=== PATIENT | female | born 1970 | race Caucasian/White ===

== ENCOUNTER 2018-11-25 15:23 | Emergency (ER) | payer MEDICAID ==
[~2018-11-25] VITALS: Ht 160 cm; Wt 64.4 kg
[2018-11-25] MEDS ORDERED: IV NS 0.9% 1,000 ML BAG IV ONE (16:00)
--- NOTE | 2018-11-25 16:00 | NUR ---
pt anxious-aware of plan of care. Family at bedside
[2018-11-25 16:01] LABS: BASOPHILS # (AUTO) 0.1 /CMM (0.0-0.2); BASOPHILS % (AUTO) 1.2 % (0.0-2.0); EOSINOPHILS % (AUTO) 1.4 % (0.0-6.0); HEMATOCRIT 40 % (33-45); HEMOGLOBIN 13.3 g/dL (11.5-14.8); LYMPHOCYTES % (AUTO) 30.3 % (20.0-44.0); MEAN CORPUSCULAR HGB CONC 34 g/dl (31.0-36.0); MEAN CORPUSCULAR VOLUME 92 fL (82-100); MONOCYTES # (AUTO) 0.4 /CMM (0.1-1.30); MONOCYTES % (AUTO) 6.4 % (2.0-12.0); NEUTROPHILS # (AUTO) 3.9 /CMM (1.8-8.9); NEUTROPHILS % (AUTO) 60.7 % (43.0-81.0); PLATELET COUNT (AUTO) 340 /CMM (150-450); RED BLOOD CELL COUNT(AUTO) 4.32 MIL/uL (4.0-5.2); WHITE BLOOD COUNT (AUTO) 6.4 K/uL (4.3-11.0)
[2018-11-25 16:08] LABS: CALCIUM, SERUM 8.9 mg/dL (8.5-10.1); CREATININE 0.6 mg/dL (0.6-1.3); POTASSIUM 3.3 mmol/L (3.5-5.1)
[2018-11-25 16:24] VITALS: BP 109/67
--- NOTE | 2018-11-25 16:30 | NUR ---
For discharge- After Care instructions given to both pt and family verbalized understanding. Home ambulatory stable
== END 2018-11-25 17:43 | disposition home or self-care (01) ==
LOC: ER 15:28
DX: R53.1 Weakness (principal)
CPT/HCPCS: 36415; 80048; 85025; 93005; 99284; J7030